=== PATIENT | female | born 1955 | race Hispanic/Latino ===

== ENCOUNTER 2018-04-01 08:30 | Day surgery (SDC) | payer OTHER ==
[2018-03-30 14:03] VITALS: BP 160/73
[2018-03-30 14:19] LABS: BASOPHILS % (AUTO) 0.7 % (0.0-5.0); EOSINOPHILS % (AUTO) 2.5 % (0.0-8.0); HEMATOCRIT 36.1 % (36-48); LYMPHOCYTES % (AUTO) 32.8 % (21.0-51.0); MEAN CORPUSCULAR HEMOGLOBIN 29.5 pg (27.0-33.0); MEAN CORPUSCULAR HGB CONC 33.9 g/dL (32.0-36.0); MONOCYTES % (AUTO) 5.7 % (3.0-13.0); NEUTROPHILS % (AUTO) 58.3 % (40.0-77.0); PLATELET COUNT (AUTO) 308 K/uL (130-400); RED BLOOD CELL COUNT(AUTO) 4.15 MIL/uL (4.00-5.50); RED CELL DISTRIBUTION WIDTH 14.1 % (11.0-15.5); WHITE BLOOD COUNT (AUTO) 9.6 K/uL (4.8-10.8)
[2018-03-30 14:20] LABS: APPEARANCE,URINE Clear (CLEAR); BILIRUBIN,URINE Negative (NEGATIVE); COLOR,URINE Yellow (YELLOW); GLUCOSE, URINE (UA) Negative (NEGATIVE); KETONES,URINE Negative (NEGATIVE); LEUKOCYTE ESTERASE ,URINE Small (NEGATIVE); NITRATE,URINE Negative (NEGATIVE); OCCULT BLOOD,URINE Negative (NEGATIVE); PROTEIN,URINE Negative (NEGATIVE); UROBILINOGEN,URINE 0.2 mg/dL (0.2-1.0)
[2018-03-30 14:20] LABS: CREATININE 0.8 mg/dL (0.5-1.5); POTASSIUM 4.1 mmol/L (3.5-5.1)
[2018-03-30 14:25] LABS: BACTERIA,URINE Rare /HPF (None Seen); RBC,URINE 0-1 /HPF (0-1); SQUAMOUS EPITHELIAL CELL,UR Rare /HPF (0-2); WBC,URINE 0-1 /HPF (0-1)
[2018-03-30 14:37] LABS: INR 0.91 (0.85-1.15); PARTIAL THROMBOPLASTIN TIME 25.8 SEC (26.3-35.5); PROTHROMBIN TIME 9.6 SEC (9.6-11.6)
[~2018-04-01] VITALS: Ht 152.4 cm; Wt 85.5 kg
[2018-04-01] VITALS (15 sets, daily range): BP systolic 98–166; BP diastolic 53–92
[~2018-04-01 08:30] MED LIST: FLUT16H NASAL; GLIP1TAB6 PO; LISI1TAB13 PO; METO25TA6 PO; PIOG15TA66 PO; PRAV40TA3 PO; SODIUM CHLORIDE 0.9% 500ML 500 ML IV SCH
[2018-04-01] MEDS ORDERED: SODIUM CHLORIDE 0.9% 1000ML 1,000 ML IV ONE (09:16)
[2018-04-01] MEDS ORDERED: LIDOCAINE HCL 2% 20ML ONE (11:30)
[2018-04-01] MEDS ORDERED: BIVALIRUDIN 250 MG/VIAL IV ONE (11:31)
[2018-04-01] MEDS ORDERED: NITROGLYCERIN 5 MG/ML 10 ML VIAL IV ONE (11:31)
[2018-04-01] MEDS ORDERED: IOPAMIDOL-370 100 ML VIAL IV ONE (11:32)
[2018-04-01] MEDS ORDERED: ISOVUE-370 50ML VIAL IV ONE (11:32)
[2018-04-01] MEDS ORDERED: HEPARIN SODIUM 1000UNIT/ML 10ML VIAL ONE (11:32)
[2018-04-01] MEDS ORDERED: ASPIRIN 325MG EC TAB 325 MG TABLET.DR PO ONE (12:22)
[2018-04-01] MEDS ORDERED: TICAGRELOR 90 MG TABLET ONE (12:22)
[2018-04-01] MEDS ORDERED: SODIUM CHLORIDE 0.9% 1000ML 1,000 ML IV SCH (12:39)
[2018-04-01] MEDS ORDERED: ROSU20TA30 PO (12:48)
[2018-04-01] MEDS ORDERED: TICA90TA PO (12:48)
[2018-04-01] MEDS ORDERED: INSULIN HUMULIN R 100 UNIT/ML 3ML ONE (13:19)
[2018-04-01] MEDS: ACETAMINOPHEN 325 MG TAB ONE ×2 (14:37→14:42)
[2018-04-01] MEDS ORDERED: ACETAMINOPHEN 325 MG TAB PO ONE (15:23)
[2018-04-01] MEDS ORDERED: ONDANSETRON HCL 4 MG/2 ML VIAL IVP SCH (15:30)
[2018-04-01] MEDS ORDERED: ONDANSETRON HCL MDV 20ML 2 MG/ML VIAL ONE (15:31)
[2018-04-01] MEDS ORDERED: INSULIN HUMULIN R 100 UNIT/ML 3ML SQ SCH (16:30)
== END 2018-04-01 19:05 | disposition home or self-care (01) ==
LOC: DAH 08:30
PROVIDERS: ATTEND Internal Medicine Cardiovascular Disease
DX: I25.119 Atherosclerotic heart disease of native coronary artery with unspecified angina pectoris (principal); E11.9 Type 2 diabetes mellitus without complications; I25.82 Chronic total occlusion of coronary artery; I10 Essential (primary) hypertension; M17.10 Unilateral primary osteoarthritis, unspecified knee; E78.2 Mixed hyperlipidemia; Z79.84 Long term (current) use of oral hypoglycemic drugs; Z79.899 Other long term (current) drug therapy
CPT/HCPCS: 36415; 71045; 80048; 81001; 82948 ×3; 85025; 85610; 85730; 93005; 93458; A4606; C1725; C1760; C1769; C1874; C1887; C1894 ×2; J0583; J1644; C9607; J1815 ×2; J3490 ×2; J7030; Q9967 ×2; 36556; C1752

== ENCOUNTER 2024-05-13 23:24 | Emergency (ER) | payer OTHER ==
[~2024-05-13] VITALS: Ht 149.9 cm; Wt 72.6 kg
[~2024-05-13 23:24] MED LIST changes: -GLIP1TAB6 PO; -LISI1TAB13 PO; +LISI1TAB53 PO; -PRAV40TA3 PO; +ROSU20TA73 PO; -SODIUM CHLORIDE 0.9% 500ML 500 ML IV SCH; +TICA90TA PO
[2024-05-13] MEDS: TETANUS/DIPHTHERIA TOXOID [ADULT] 0.5 ML VIAL IM ONE (23:58)
[2024-05-14] MEDS: LIDOCAINE HCL 1% 20 ML VIAL INJ SCH
[2024-05-14] MEDS: MORPHINE 2 MG SYG ONE (00:08)
[2024-05-14] MEDS: MORPHINE 2 MG SYG IM ONE (00:08)
[2024-05-14] MEDS ORDERED: CLIN-141 PO (00:12)
[2024-05-14] MEDS ORDERED: IBUP-2070 PO (00:12)
[2024-05-14] MEDS: CEFAZOLIN SODIUM 1 GM VIAL IM STA (00:21)
[2024-05-14 01:37] VITALS: BP 143/67; PULSE 70; RESP 18; O2SAT 99
== END 2024-05-14 01:37 | disposition home or self-care (01) ==
LOC: EDH 23:24
DX: S90.451A Superficial foreign body, right great toe, initial encounter (principal); I10 Essential (primary) hypertension; E11.9 Type 2 diabetes mellitus without complications; E78.00 Pure hypercholesterolemia, unspecified; M19.90 Unspecified osteoarthritis, unspecified site; Z95.5 Presence of coronary angioplasty implant and graft; Z98.890 Other specified postprocedural states; Z79.899 Other long term (current) drug therapy; Z79.84 Long term (current) use of oral hypoglycemic drugs; X58.XXXA Exposure to other specified factors, initial encounter; Y93.89 Activity, other specified; Y92.89 Other specified places as the place of occurrence of the external cause; Y99.8 Other external cause status
CPT/HCPCS: 99284; 90714; 73660; 90471; 96372; J0690; J2270